=== PATIENT | female | born 1940 | race Caucasian/White ===

== ENCOUNTER 2021-03-13 13:18 | Emergency (ER) | payer OTHER ==
[~2021-03-13 13:18] MED LIST: ALPRAZOLAM0.5 MG PO; AMBIEN10 MG PO; ASPIR 8181 MG PO; BENTYL 20MG TAB20 MG PO; BIOTIN300 MCG PO; CARVEDILOL3.125 MG PO; CLOPIDOGREL75 MG PO; COQ-10100 MG PO; COREG 12.5MG12.5 MG PO; DILTIAZEM ER180 M1 PO; DITROPAN XL5 MG PO; FERROUS SULFAT325 M2 PO; FISH OIL 1,0001 EAC4 PO; GLUCOSAMINE CH PO; HYDRALAZINE HCL10 MG PO; HYDRALAZINE HCL50 MG PO; IMDUR ER TAB 3030 MG PO; KEFLEX CAP 500500 MG PO; LASIX 40 MG TAB40 MG PO; LEVAQUIN250 MG PO; LIPITOR TAB 2020 MG PO; MORPHINE PUMP; NORCO 10-325 T1 EACH PO; OMEPRAZOLE20 MG PO; ONDANSETRON ODT8 MG PO; OSTEO BI-FLEX1 EAC1 PO; PHENERGAN 25 MG25 M1 PO; POTASSIUM CHLO20 ME2 PO; PROCARDIA XL 6060 MG PO; ROCEPHIN 2 GM AD2 GM IM; ROXICODONE TAB 55 MG PO; SINGULAIR10 MG PO; SODIUM BICARBO650 M1 PO; SPIRONOLACTONE25 MG PO; SYNTHROID 100100 MCG PO; SYNTHROID 88 M88 MCG PO; TYLENOL 325MG325 MG PO; VITAMIN D2400 UNIT PO; ZANAFLEX 4 MG TA4 MG PO; ZYVOX600 MG PO
[2021-03-13 14:25] LABS: HEMOGLOBIN 11.7 gm/dl (12.3-15.3); RED BLOOD COUNT 3.5 M/UL (4.00-5.10); WHITE BLOOD COUNT 7.1 K/UL (4.5-11.0)
== END 2021-03-13 16:15 | disposition home or self-care (01) ==
LOC: ER1 13:18
PROVIDERS: Preventive Medicine Occupational Medicine
DX: E86.0 Dehydration (principal); Z20.822 Contact with and (suspected) exposure to COVID-19; E11.9 Type 2 diabetes mellitus without complications; I10 Essential (primary) hypertension; Z90.49 Acquired absence of other specified parts of digestive tract
CPT/HCPCS: 71045; 80053; 81001; 82550; 82553; 83690; 83874; 84484; 85025; 85652; 86140; 87086; 99284; U0002

== ENCOUNTER → 2022-01-08 | Outpatient (CLI) | payer OTHER ==
[2022-01-08 10:25] LABS: HEMOGLOBIN 12.2 gm/dl (12.3-15.3); RED BLOOD COUNT 3.61 M/UL (4.00-5.10); WHITE BLOOD COUNT 12.9 K/UL (4.5-11.0)
== END ==
LOC: LAB 09:28
PROVIDERS: Internal Medicine Nephrology
DX: N18.4 Chronic kidney disease, stage 4 (severe) (principal)
CPT/HCPCS: 36415; 85027; 85610; 85730

== ENCOUNTER → 2022-01-13 | Outpatient (CLI) | payer OTHER ==
[~2022-01-13] MED LIST changes: +ALLOPURINOL100 MG PO; +ARTHRITIS PAIN650 M1 PO; +CO Q-10200 MG PO; +EPLERENONE25 MG PO; +LEVOTHYROXINE88 MCG PO; +MELATONIN10 M2 PO; +OSTEO BI-FLEX1 EACH PO; +ZOLPIDEM TARTRA10 MG PO
[2022-01-13 07:01] LABS: HEMOGLOBIN 11.4 gm/dl (12.3-15.3); RED BLOOD COUNT 3.42 M/UL (4.00-5.10); WHITE BLOOD COUNT 9.7 K/UL (4.5-11.0)
== END ==
LOC: CT 06:01
PROVIDERS: Internal Medicine Nephrology
DX: N18.4 Chronic kidney disease, stage 4 (severe) (principal); Z51.81 Encounter for therapeutic drug level monitoring
CPT/HCPCS: 74150; 85025; 85610; 85730